=== PATIENT | male | born 1990 | race Two or more races ===

== ENCOUNTER 2022-09-10 18:40 | Emergency (ER) | payer MEDICAID, OTHER ==
[~2022-09-10] VITALS: Ht 170.2 cm; Wt 78.0 kg
[2022-09-10] MEDS ORDERED: ONDANSETRON HCL 4 MG/2 ML VIAL IM ONE (19:15)
[2022-09-10] MEDS ORDERED: DICYCLOMINE HCL 10 MG CAP PO ONE (19:15)
[2022-09-10] MEDS ORDERED: SODIUM CHLORIDE 0.9% 1,000 ML IV ONE ×2 (19:15→21:00)
[2022-09-10 19:36] LABS: Basophils # (auto) 0 10 ^3/uL (0-0.2); Basophils % (auto) 0.1 % (0.0-2.0); Eosinophils # (auto) 0 10 ^3/uL (0-0.8); Hematocrit 50.6 % (41.0-53.0); Hemoglobin 17.3 g/dL (13.5-17.5); Lymphocytes # (auto) 0.8 10 ^3/uL (0.4-5.4); Lymphocytes % (auto) 4.6 % (10.0-50.0); Mean Corpuscular Hemoglobin 30.5 pg (28.0-32.0); Mean Corpuscular Hgb Conc. 34.1 g/dL (32.0-36.0); Mean Corpuscular Volume 89.4 fL (80.0-100.0); Monocytes # (auto) 0.5 10 ^3/uL (0-1.3); Monocytes % (auto) 3.1 % (0.0-12.0); Neutrophils # (auto) 16.1 10 ^3/uL (1.6-8.6); Neutrophils % (auto) 92.2 % (37.0-80.0); Red Blood Cells 5.66 10^6/uL (4.5-5.90); Red Cell Distribution Width 12.7 % (11.8-14.3); White Blood Cell 17.4 10^3/uL (4.4-10.8)
[2022-09-10] MEDS ORDERED: HYDROmorphone HCL 2 MG/ML VL/or syr IM ONE (20:30)
[2022-09-10 20:39] LABS: Albumin 4.8 g/dL (3.4-5.0); Calcium 9.4 mg/dL (8.5-10.1); Potassium 4.7 mmol/L (3.5-5.1)
[2022-09-10 20:44] LABS: BUN/Creatinine Ratio 18.3 (10.0-20.0); Bilirubin, Total 3.8 mg/dL (0.2-1.0)
[2022-09-11] MEDS ORDERED: HYDROmorphone HCL 2 MG/ML VL/or syr IV ONE (01:00)
[2022-09-11] MEDS ORDERED: SODIUM CHLORIDE 0.9% 2,350 ML IV ONE (01:30)
[2022-09-11] MEDS ORDERED: KETOROLAC TROMETH 30 MG/ML 1ML VIAL IV ONE (01:30)
[2022-09-11] MEDS ORDERED: metroNIDAZOLE 500MG/100ML 100 ML IV ONE (01:30)
[2022-09-11] MEDS ORDERED: PIPERACILLIN-TAZOB 3.375GM 100 ML IV ONE (01:30)
[2022-09-11 02:03] VITALS: TEMP 98
[2022-09-11 02:04] VITALS: PULSE 68; RESP 18; O2SAT 94
[2022-09-11 02:16] VITALS: BP 148/85; PULSE 68; RESP 18
== END 2022-09-11 01:44 | disposition short-term general hospital (02) ==
LOC: ER 18:40 → EDBD 18:40 → ER 09-11 01:44
DX: K85.90 Acute pancreatitis without necrosis or infection, unspecified (principal)
CPT/HCPCS: 36415; 74176; 80053; 83690; 84484; 85025; 96361; 96372; 96374; 96375; 99285; J0500; J1170; J1885; J2405; J3490; J7030